=== PATIENT | male | born 1985 | race African-American/Black ===

== ENCOUNTER 2017-09-06 14:05 | Inpatient (IN) | payer OTHER ==
[2017-09-06 14:08] VITALS: BMI 23.8
--- NOTE | 2017-09-06 14:32 | HP ---
CIWA Score - CIWA Score Nausea/Vomitin Muscle Tremors: 3 Anxiety: 3 Agitation: 3 Paroxysmal Sweats: 1-Minimal Palms Moist Orientation: 0-Oriented Tacttile Disturbances: 2-Mild Itch/Numbness/Burn Auditory Disturbances: 2-Mild Harshness/Frighten Visual Disturbances: 2-Mild Sensitivity Headache: 2-Mild CIWA-Ar Total Score: 21 Admission ROS [facility] - HPI Chief Complaint: I NEED HELP TO STOP DRINKING ALCOHOL Allergies/Adverse Reactions: Allergies Allergy/AdvReac Type Severity Reaction Status Date / Time iodine Allergy Verified 09/06/17 14:33 shellfish derived Allergy Verified 09/06/17 14:33 - Ebola screening Have you traveled outside of the country in the last 21 days: No Have you had contact with anyone from an Ebola affected area: No Have you been sick,other than usual withdrawal symptoms: No Do you have a fever: No - Review of Systems Constitutional: Loss of Appetite, Malaise, Night Sweats, Changes in sleep, Weakness, Unintentional Wgt. Loss EENT: reports: Nose Congestion Respiratory: reports: No Symptoms reported Cardiac: reports: Palpitations GI: reports: Diarrhea, Nausea, Vomiting, Abdominal cramping : reports: No Symptoms Reported Musculoskeletal: reports: Back Pain, Muscle Pain Integumentary: reports: Dryness Neuro: reports: Headache, Tremors Endocrine: reports: No Symptoms Reported Hematology: reports: No Symptoms Reported Psychiatric: reports: Depressed Patient History - Patient Medical History Hx Anemia: Yes (NO MED) Hx Asthma: No Hx Chronic Obstructive Pulmonary Disease (COPD): No Hx Cancer: No Hx Cardiac Disorders: No Hx Congestive Heart Failure: No Hx Hypertension: No Hx Hypercholesterolemia: No Hx Pacemaker: No HX Cerebrovascular Accident: No Hx Seizures: No Hx Dementia: No Hx Diabetes: No Hx Gastrointestinal Disorders: No Hx Liver Disease: No Hx Genitourinary Disorders: No Hx Sexually Transmitted Disorders: No Hx Renal Disease (ESRD): No Hx Thyroid Disease: No Hx Human Immunodeficiency Virus (HIV): No (LAST 12/17 NEGATIVE) Hx Hepatitis C: No Hx Depression: Yes Hx Suicide Attempt: No Hx Bipolar Disorder: No Hx Schizophrenia: No Other Medical History: NO SUCIDAL,NO HOMICIDAL - Patient Surgical History Past Surgical History: No - PPD History Previous Implant?: Yes Documented Results: Negative w/o proof Implanted On Prior [facility] Admission?: No PPD to be Administered?: Yes - Smoking Cessation Smoking history: Current every day smoker Have you smoked in the past 12 months: Yes Aproximately how many cigarettes per day: 10 Cigars Per Day: 0 Hx Chewing Tobacco Use: No Initiated information on smoking cessation: Yes 'Breaking Loose' booklet given: 09/06/17 - Substance & Tx. History Hx Alcohol Use: Yes Hx Substance Use: No Substance Use Type: Alcohol Hx Substance Use Treatment: No - Substances Abused Alcohol Route: Oral Frequency: Daily Amount used: 2PINTS OF RUM/2 OF 6 PACKS OF 16 OZS OF BEER Age of first use: 9 Date of Last Use: 09/06/17 Family Disease History - Family Disease History Family Disease History: Other: Father (DSA), Mother (ALCOHOL) Admission Physical Exam [facility] - Vital Signs Vital Signs: Vital Signs - 24 hr 09/06/17 14:06 Temperature 97.8 F Pulse Rate 89 Respiratory 18 Rate Blood Pressure 162/89 - Physical General Appearance: Yes: Moderate Distress, Tremorous, Irritable, Sweating, Anxious HEENTM: Yes: Normal ENT Inspection, MACHELLE, Pharynx Normal Respiratory: Yes: Lungs Clear, Normal Breath Sounds, No Respiratory Distress Neck: Yes: Within Normal Limits, Supple, Trachea in good position Breast: Yes: Within Normal Limits Cardiology: Yes: Within Normal Limits, Regular Rhythm, Regular Rate, S1, S2 Abdominal: Yes: Within Normal Limits, Normal Bowel Sounds, Non Tender, Flat, Soft Genitourinary: Yes: Within Normal Limits Back: Yes: Within Normal Limits Musculoskeletal: Yes: full range of Motion, Back pain, Muscle Pain Extremities: Yes: Tremors Neurological: Yes: director product management II-XII NML intact, Alert, Motor Strength 5/5 Integumentary: Yes: Dry Lymphatic: Yes: Within Normal Limits - Diagnostic (1) Alcohol dependence with uncomplicated withdrawal Current Visit: Yes Status: Acute (2) Syncope Current Visit: Yes Status: Acute (3) Nicotine dependence Current Visit: Yes Status: Acute (4) Depression Current Visit: Yes Status: Acute Cleared for Admission [facility] - Detox or Rehab [facility] Level of Care: Medically Managed Detox Regimen/Protocol: Librium S Breath Alcohol Content Breath Alcohol Content: 0.120 Urine Drug Screen - Results Drug Screen Negative: No Urine Drug Screen Results: AMP-Amphetamines, MET-Methamphetamine
[2017-09-06] MEDS ORDERED: hydrOXYzine PAMOATE 50 MG CAPSULE (FP) PO PRN (14:46)
[2017-09-06] MEDS ORDERED: MAGNESIUM HYDROX 2400MG/30ML ORAL SUSPENSION 30 ML CUP PO PRN (14:46)
[2017-09-06] MEDS ORDERED: MAG HYDROX/AL HYDROX/SIMETH 30 ML UNIT-DOSE CUP PO PRN (14:46)
[2017-09-06] MEDS ORDERED: LOPERAMIDE HCL 2 MG CAPSULE PO PRN (14:46)
[2017-09-06] MEDS ORDERED: MENTHOL/PHENOL 1 EACH UD MM PRN (14:46)
[2017-09-06] MEDS ORDERED: P-EPHED 60MG/TRIPROLIDI 2.5MG TABLET PO PRN (14:46)
[2017-09-06] MEDS ORDERED: MAGNESIUM CITRATE 300 ML BOTTLE PO PRN (14:46)
[2017-09-06] MEDS ORDERED: guaiFENesin/D-METHORPHAN HB 10 ML UNIT-DOSE CUPS PO PRN (14:46)
[2017-09-06] MEDS ORDERED: chlordiazePOXIDE HCL 25 MG CAPSULE PO PRN (14:46)
[2017-09-06] MEDS ORDERED: chlordiazePOXIDE HCL 25 MG CAPSULE PO ONE (14:46)
[2017-09-06] MEDS ORDERED: IBUPROFEN 400 MG TABLET (FP) PO PRN (14:46)
[2017-09-06] MEDS ORDERED: ACETAMINOPHEN 325 MG TABLET (FP) PO PRN (14:46)
[2017-09-06 19:42] LABS: URINE APPEARANCE CLEAR; URINE BILIRUBIN NEGATIVE (NEGATIVE); URINE BLOOD NEGATIVE (NEGATIVE); URINE COLOR LTYELLOW; URINE GLUCOSE (UA) NEGATIVE (NEGATIVE); URINE KETONE NEGATIVE (NEGATIVE); URINE LEUK ESTERASE NEGATIVE (NEGATIVE); URINE NITRITE NEGATIVE (NEGATIVE); URINE PROTEIN NEGATIVE (NEGATIVE); URINE UROBILINOGEN NEGATIVE mg/dL (0.2-1.0)
[2017-09-06] MEDS: chlordiazePOXIDE HCL 25 MG CAPSULE PO SCH (22:59)
[2017-09-06] MEDS: THIAMINE HCL 100 MG TABLET (FP) PO SCH (22:59)
[2017-09-07] MEDS: chlordiazePOXIDE HCL 25 MG CAPSULE PO SCH ×4 (05:32→22:31)
[2017-09-07 09:50] LABS: HEMATOCRIT 41.4 % (35.4-49); HEMOGLOBIN 13.1 GM/dL (11.7-16.9); MCH 26.5 pg (25.7-33.7); MCHC 31.8 g/dl (32.0-35.9); MEAN CELL VOLUME 83.5 fl (80-96); MEAN PLT VOLUME 7.7 fl (7.5-11.1); PLATELET COUNT 207 K/MM3 (134-434); RBC 4.95 M/mm3 (4.00-5.60); RDW 17.6 % (11.9-15.9); WHITE BLOOD COUNT 3.5 K/mm3 (4.0-10.0)
[2017-09-07 09:58] LABS: ALBUMIN 2.9 g/dl (3.4-5.0); ANION GAP 6 (8-16); BLOOD UREA NITROGEN 5 mg/dL (7-18); CALCIUM 8.2 mg/dL (8.5-10.1); CHLORIDE 108 mmol/L (98-107); CO2 29 mmol/L (21-32); GLUCOSE,RANDOM 85 mg/dL (74-106); POTASSIUM 3.9 mmol/L (3.5-5.1); SODIUM 143 mmol/L (136-145)
[2017-09-07 10:02] LABS: ALK PHOS 56 U/L (45-117); BILIRUBIN,TOTAL 0.6 mg/dL (0.2-1.0); CREATININE 0.6 mg/dL (0.7-1.3); SGOT/AST 18 U/L (15-37); SGPT/ALT 14 U/L (12-78); TOT PROT 6.5 g/dl (6.4-8.2)
[2017-09-07] MEDS: PRENATAL VITAMINS W/ FOLIC ACID TABLET (FP) PO SCH (10:18)
--- NOTE | 2017-09-07 11:43 | CONSULT ---
[facility] Psychiatric Consult - Data Date of interview: 09/07/17 Admission source: [facility] Identifying data: First admission to [facility] for this 32 y/o AA male seeking detox treatment on for alcohol dependence.Patient is single,a father of two,domiciled,unemployed and suported on Public Assistance. Substance Abuse History: Confirmed by patient in this session.See current [facility] report for details. Smoking history: Current every day smoker. Have you smoked in the past 12 months: Yes. Aproximately how many cigarettes per day: 10. Cigars Per Day: 0. Hx Chewing Tobacco Use: No. Initiated information on smoking cessation: Yes. 'Breaking Loose' booklet given: 09/06/17. - Substance & Tx. History. Hx Alcohol Use: Yes. Hx Substance Use: No. Substance Use Type : Alcohol. Hx Substance Use Treatment: No. - Substances Abused. Alcohol. Route: Oral. Frequency: Daily. Amount used: 2PINTS OF RUM/2 OF 6 PACKS OF 16 OZS OF BEER. Age of first use: 9. Date of Last Use: 09/06/17 Medical History: Patient endorses good general health. Psychiatric History: Patient denies history of psychiatric hospitalizations.Diagnosed with ADHD and MDD.Managed on a regimen of wellbutrin SR 200 mg/day.Followed at the [facility] in the [place].Mr Mir denies history of suicide attempts. Physical/Sexual Abuse/Trauma History: Patient denies. Additional Comment: Urine Drug Screen Results: AMP-Amphetamines, MET- Methamphetamine.Noted. Mental Status Exam - Mental Status Exam Alert and Oriented to: Time, Place, Person Cognitive Function: Good Patient Appearance: Well Groomed Mood: Hopeful, Euthymic Affect: Appropriate, Normal Range Patient Behavior: Appropriate, Cooperative Speech Pattern: Clear, Appropriate Voice Loudness: Normal Thought Process: Intact, Goal Oriented Thought Disorder: Not Present Hallucinations: Denies Suicidal Ideation: Denies Homicidal Ideation: Denies Insight/Judgement: Poor Sleep: Poorly, Difficulty falling asleep Appetite: Good Muscle strength/Tone: Normal Gait/Station: Normal Psychiatric Findings - Problem List ([place] 1, 2,3) (1) Alcohol dependence with uncomplicated withdrawal Current Visit: Yes Status: Acute (2) Nicotine dependence Current Visit: Yes Status: Acute (3) Insomnia Current Visit: Yes Status: Acute - Initial Treatment Plan Initial Treatment Plan: Psychoeducation and support provided in this session.Sleep hygiene discussed.Detoxification in progress.Medications : wellbutrin XL 150 mg po daily + ambien 10 mg po hs prn.Side effects/benefits of both drugs are discused with patient (including risk of seizures and parasomnias ).Consent (verbal) to this careplan : received from Mir.Patient requests referral to [facility] for aftercare (being processed).Daily monitoring of clinical course.
[2017-09-07 12:11] LABS: SICKLE CELL SCREEN NEGATIVE (NEGATIVE)
--- NOTE | 2017-09-07 12:52 | PN ---
[facility] CIWA - CIWA Score Nausea/Vomitin Muscle Tremors: 3 Anxiety: 3 Agitation: 3 Paroxysmal Sweats: 3 Orientation: 0-Oriented Tacttile Disturbances: 0-None Auditory Disturbances: 0-None Visual Disturbances: 0-None Headache: 0-None Present CIWA-Ar Total Score: 15 S Progress Note (SOAP) Subjective: sleep disturbance tired shakes sweats Objective: 09/07/17 12:49 Sleepy but arousable to verbal stimuli Tremulous Vital Signs Temperature 97 F L 09/07/17 09:15 Pulse Rate 65 09/07/17 09:15 Respiratory Rate 16 09/07/17 09:15 Blood Pressure 111/70 09/07/17 09:15 O2 Sat by Pulse Oximetry (%) Laboratory Last Values WBC 3.5 K/mm3 (4.0-10.0) L 09/07/17 07:00 RBC 4.95 M/mm3 (4.00-5.60) 09/07/17 07:00 Hgb 13.1 GM/dL (11.7-16.9) 09/07/17 07:00 Hct 41.4 % (35.4-49) 09/07/17 07:00 MCV 83.5 fl (80-96) 09/07/17 07:00 MCH 26.5 pg (25.7-33.7) 09/07/17 07:00 MCHC 31.8 g/dl (32.0-35.9) L 09/07/17 07:00 RDW 17.6 % (11.9-15.9) H 09/07/17 07:00 Plt Count 207 K/MM3 (134-434) 09/07/17 07:00 MPV 7.7 fl (7.5-11.1) 09/07/17 07:00 Sickle Cell Screen Negative (NEGATIVE) 09/07/17 07:00 Sodium 143 mmol/L (136-145) 09/07/17 07:00 Potassium 3.9 mmol/L (3.5-5.1) 09/07/17 07:00 Chloride 108 mmol/L (98-107) H 09/07/17 07:00 Carbon Dioxide 29 mmol/L (21-32) 09/07/17 07:00 Anion Gap 6 (8-16) L 09/07/17 07:00 BUN 5 mg/dL (7-18) L 09/07/17 07:00 Creatinine 0.6 mg/dL (0.7-1.3) L 09/07/17 07:00 Creat Clearance w eGFR > 60 (>60) 09/07/17 07:00 Random Glucose 85 mg/dL (74-106) 09/07/17 07:00 Calcium 8.2 mg/dL (8.5-10.1) L 09/07/17 07:00 Total Bilirubin 0.6 mg/dL (0.2-1.0) 09/07/17 07:00 AST 18 U/L (15-37) 09/07/17 07:00 ALT 14 U/L (12-78) 09/07/17 07:00 Alkaline Phosphatase 56 U/L (45-117) 09/07/17 07:00 Total Protein 6.5 g/dl (6.4-8.2) 09/07/17 07:00 Albumin 2.9 g/dl (3.4-5.0) L 09/07/17 07:00 Urine Color Ltyellow 09/06/17 18:30 Urine Appearance Clear 09/06/17 18:30 Urine pH 5.0 (5.0-8.0) 09/06/17 18:30 Ur Specific [place] 1.017 (1.001-1.035) 09/06/17 18:30 Urine Protein Negative (NEGATIVE) 09/06/17 18:30 Urine Glucose (UA) Negative (NEGATIVE) 09/06/17 18:30 Urine Ketones Negative (NEGATIVE) 09/06/17 18:30 Urine Blood Negative (NEGATIVE) 09/06/17 18:30 Urine Nitrite Negative (NEGATIVE) 09/06/17 18:30 Urine Bilirubin Negative (NEGATIVE) 09/06/17 18:30 Urine Urobilinogen Negative mg/dL (0.2-1.0) 09/06/17 18:30 Ur Leukocyte Esterase Negative (NEGATIVE) 09/06/17 18:30 RPR Titer Nonreactive (NONREACTIVE) 09/07/17 07:00 labs noted Assessment: withdrawal sx Plan: Continue detox
--- NOTE | 2017-09-07 12:53 | EKG ---
Test Reason : Blood Pressure : / mmHG Vent. Rate : 094 BPM Atrial Rate : 094 BPM P-R Int : 160 ms QRS Dur : 098 ms QT Int : 370 ms P-R-T Axes : 082 -26 071 degrees QTc Int : 462 ms NORMAL SINUS RHYTHM NORMAL ECG NO PREVIOUS ECGS AVAILABLE Confirmed by MARIANNE OAKES MD ([id number]) on 09/07/2017 12:53:02 PM Referred By: Confirmed By:MARIANNE OAKES MD
[2017-09-07] MEDS ORDERED: ZOLPIDEM TARTRATE 10 MG TABLET (PARK CARE ONLY) PO PRN (22:00)
[2017-09-07] MEDS: THIAMINE HCL 100 MG TABLET (FP) PO SCH (22:31)
[2017-09-08] MEDS: chlordiazePOXIDE HCL 25 MG CAPSULE PO SCH ×2 (06:18→10:31)
[2017-09-08] MEDS: PRENATAL VITAMINS W/ FOLIC ACID TABLET (FP) PO SCH (10:31)
--- NOTE | 2017-09-08 12:59 | PN ---
[facility] CIWA - CIWA Score Nausea/Vomitin-No Nausea/No Vomiting Muscle Tremors: 2 Anxiety: 4-Mod. Anxious/Guarded Agitation: 3 Paroxysmal Sweats: 3 Orientation: 0-Oriented Tacttile Disturbances: 2-Mild Itch/Numbness/Burn Auditory Disturbances: 2-Mild Harshness/Frighten Visual Disturbances: 0-None Headache: 0-None Present CIWA-Ar Total Score: 16 BHS Progress Note (SOAP) Subjective: Interrupted Sleep, Fatigue, Sweating, Anxious. Objective: PT. A & O X 3. NO ACUTE DISTRESS. 09/08/17 12:57 Vital Signs Temperature 98.3 F 09/08/17 09:10 Pulse Rate 94 H 09/08/17 09:10 Respiratory Rate 20 09/08/17 09:10 Blood Pressure 145/75 09/08/17 09:10 O2 Sat by Pulse Oximetry (%) Laboratory Tests 09/06/17 09/07/17 09/07/17 18:30 07:00 07:00 WBC 3.5 L RBC 4.95 Hgb 13.1 Hct 41.4 MCV 83.5 MCH 26.5 MCHC 31.8 L RDW 17.6 H Plt Count 207 MPV 7.7 Sickle Cell Screen Negative Sodium 143 Potassium 3.9 Chloride 108 H Carbon Dioxide 29 Anion Gap 6 L BUN 5 L Creatinine 0.6 L Creat Clearance w eGFR > 60 Random Glucose 85 Calcium 8.2 L Total Bilirubin 0.6 AST 18 ALT 14 Alkaline Phosphatase 56 Total Protein 6.5 Albumin 2.9 L Urine Color Ltyellow Urine Appearance Clear Urine pH 5.0 Ur Specific [place] 1.017 Urine Protein Negative Urine Glucose (UA) Negative Urine Ketones Negative Urine Blood Negative Urine Nitrite Negative Urine Bilirubin Negative Urine Urobilinogen Negative Ur Leukocyte Esterase Negative RPR Titer 09/07/17 07:00 WBC RBC Hgb Hct MCV MCH MCHC RDW Plt Count MPV Sickle Cell Screen Sodium Potassium Chloride Carbon Dioxide Anion Gap BUN Creatinine Creat Clearance w eGFR Random Glucose Calcium Total Bilirubin AST ALT Alkaline Phosphatase Total Protein Albumin Urine Color Urine Appearance Urine pH Ur Specific [place] Urine Protein Urine Glucose (UA) Urine Ketones Urine Blood Urine Nitrite Urine Bilirubin Urine Urobilinogen Ur Leukocyte Esterase RPR Titer Nonreactive LABS NOTED. Assessment: 09/08/17 12:57 WITHDRAWAL SYMPTOMS. Plan: CONTINUE DETOX. INCREASE DAILY PO FLUID INTAKE.
[2017-09-08 13:26] VITALS: BP 128/83; PULSE 88; TEMP 98.9
--- NOTE | 2017-09-08 16:34 | DS ---
[facility] Detox Discharge Summary Admission Date: 09/06/17 Discharge Date: 09/08/17 - History Present History: Alcohol Dependence Additional Comments: PATIENT HAS PERSONAL MATTER TO ATTEND TO AND DOES NOT WISH TO STAY TO COMPLETE DETOX REGIMEN. RISKS OF LEAVING DETOX UNIT AGAINST MEDICAL ADVICE AND PRIOR TO COMPLETION OF DETOX REGIMEN EXPLAINED TO PATIENT. PATIENT ADVISED TO GO IMMEDIATELY TO NEAREST ER SHOULD ANY INTOLERABLE DETOX SYMPTOMS DEVELOP AT ANY TIME. PATIENT LEFT DETOX UNIT IN STABLE MEDICAL CONDITION. Pertinent Past History: Nicotine Dependence, History of Anemia, History of Syncope, Depression, Insomnia. - Physical Exam Results Vital Signs: Vital Signs Temperature 98.9 F 09/08/17 13:25 Pulse Rate 88 09/08/17 13:25 Respiratory Rate 18 09/08/17 13:25 Blood Pressure 128/83 09/08/17 13:25 O2 Sat by Pulse Oximetry (%) Pertinent Admission Physical Exam Findings: WITHDRAWAL SYMPTOMS. Laboratory Tests 09/06/17 09/07/17 09/07/17 18:30 07:00 07:00 WBC 3.5 L RBC 4.95 Hgb 13.1 Hct 41.4 MCV 83.5 MCH 26.5 MCHC 31.8 L RDW 17.6 H Plt Count 207 MPV 7.7 Sickle Cell Screen Negative Sodium 143 Potassium 3.9 Chloride 108 H Carbon Dioxide 29 Anion Gap 6 L BUN 5 L Creatinine 0.6 L Creat Clearance w eGFR > 60 Random Glucose 85 Calcium 8.2 L Total Bilirubin 0.6 AST 18 ALT 14 Alkaline Phosphatase 56 Total Protein 6.5 Albumin 2.9 L Urine Color Ltyellow Urine Appearance Clear Urine pH 5.0 Ur Specific [place] 1.017 Urine Protein Negative Urine Glucose (UA) Negative Urine Ketones Negative Urine Blood Negative Urine Nitrite Negative Urine Bilirubin Negative Urine Urobilinogen Negative Ur Leukocyte Esterase Negative RPR Titer 09/07/17 07:00 WBC RBC Hgb Hct MCV MCH MCHC RDW Plt Count MPV Sickle Cell Screen Sodium Potassium Chloride Carbon Dioxide Anion Gap BUN Creatinine Creat Clearance w eGFR Random Glucose Calcium Total Bilirubin AST ALT Alkaline Phosphatase Total Protein Albumin Urine Color Urine Appearance Urine pH Ur Specific [place] Urine Protein Urine Glucose (UA) Urine Ketones Urine Blood Urine Nitrite Urine Bilirubin Urine Urobilinogen Ur Leukocyte Esterase RPR Titer Nonreactive LABS NOTED. - Treatment Hospital Course: Detoxed Safely - Medication Discharge Medications: Ambulatory Orders Bupropion HCl [Wellbutrin Sr] 200 mg PO DAILY 09/06/17 Guanfacine HCl 2 mg PO DAILY 09/06/17 - Diagnosis (1) Alcohol dependence with uncomplicated withdrawal Status: Acute (2) Depression Status: Acute Qualifiers: Depression Type: unspecified Qualified Code(s): F32.9 - Major depressive disorder, single episode, unspecified (3) Nicotine dependence Status: Acute Qualifiers: Nicotine product type: cigarettes Substance use status: uncomplicated Qualified Code(s): F17.210 - Nicotine dependence, cigarettes, uncomplicated (4) Syncope Status: Acute Qualifiers: Syncope type: unspecified Qualified Code(s): R55 - Syncope and collapse (5) Insomnia Status: Acute Qualifiers: Insomnia type: unspecified Qualified Code(s): G47.00 - Insomnia, unspecified - AMA Did Patient Leave Against Medical Advice: Yes (PT HAS PERSONAL ISSUE AND DOES NOT WISH TO STAY TO COMPELTE DETOX REGIMEN.)
[2017-09-08] MEDS ORDERED: chlordiazePOXIDE 5 MG CAPSULE PO SCH (23:00)
[2017-09-09] MEDS ORDERED: chlordiazePOXIDE HCL 10 MG CAPSULE PO SCH (23:00)
== END 2017-09-08 15:53 | disposition left against medical advice (07) | DRG 770 ==
LOC: YASAS 14:05 → Y3N 14:45
PROVIDERS: ADMIT Internal Medicine; ATTEND Internal Medicine
PROC: HZ2ZZZZ Detoxification Services for Substance Abuse Treatment (ICD-10-PCS; principal; 2017-09-06)
DX: F10.230 Alcohol dependence with withdrawal, uncomplicated (principal); F17.210 Nicotine dependence, cigarettes, uncomplicated; F32.9 Major depressive disorder, single episode, unspecified; D64.9 Anemia, unspecified; G47.00 Insomnia, unspecified; Z86.79 Personal history of other diseases of the circulatory system; Z91.013 Allergy to seafood; Z91.048 Other nonmedicinal substance allergy status
CPT/HCPCS: 36415; 80053; 81003; 85027; 85660; 86593; 93005; 93010